=== PATIENT | male | born 1955 | race Caucasian/White ===

== ENCOUNTER 2018-01-22 18:30 | Emergency (ER) | payer OTHER ==
[2018-01-22 18:38] VITALS: BMI 37.7
[2018-01-22 19:04] LABS: BASOPHILS # (AUTO) 0.1 X10^3/uL (0.0-0.1); BASOPHILS % (AUTO) 0.5 % (0.2-1.0); EOSINOPHILS # (AUTO) 0.2 x10^3/uL (0.0-0.2); EOSINOPHILS % (AUTO) 1.4 % (0.9-2.9); HEMATOCRIT 44.2 % (42.0-54.0); HEMOGLOBIN 15.4 g/dL (13.5-18.0); LYMPHOCYTES # (AUTO) 1.2 X10^3/uL (1.3-2.9); LYMPHOCYTES % (AUTO) 9.9 % (21.0-51.0); MEAN CORPUSCULAR HEMOGLOBIN 30.3 pg (27.0-34.0); MEAN CORPUSCULAR HGB CONC 34.8 g/dL (33.0-35.0); MEAN CORPUSCULAR VOLUME 87.1 fL (80.0-100.0); MEAN PLATELET VOLUME 8.2 fL (7.4-11.0); MONOCYTES # (AUTO) 1.3 x10^3/uL (0.3-0.8); MONOCYTES % (AUTO) 11.3 % (0.0-13.0); NEUTROPHILS # (AUTO) 9.1 x10^3/uL (2.2-4.8); NEUTROPHILS % (AUTO) 76.9 % (42.0-75.0); PLATELET COUNT 270 X10^3/uL (150.0-450.0); RED BLOOD COUNT 5.07 X10^6/uL (4.7-6.0); RED CELL DISTRIBUTION WIDTH 14.1 % (11.6-16.5); WHITE BLOOD COUNT 11.9 X10^3/uL (3.6-10.0)
--- NOTE | 2018-01-22 19:04 | DR.GENAD ---
HPI - PCP Primary Care Physician: LB - HPI Comment HPI Comment: symptoms started this morning. No fevers, left groin pain and left lower back pain. No urinary symptoms. Pain free now. - Complaint/Symptoms Chief Complaint:: PT STATES" I'M HURTING IN MY GROIN AREA AND MY LT KIDNEY AREA " - Nurses notes reviewed Nurses Notes Review: Yes - Source History Provided: Patient - Mode of Arrival Mode of Arrival: Ambulatory - Timing Onset of Chief Complaint: 01/22/18 PMH - PMH Past Medical History: Yes Past Medical History: Diabetes, Hypertension, Hyperthyroidism Past Medical History Comment: kidney stone x 1 years ago Past Surgical History: Yes Surgical History: Cholecystectomy, Ortho Surgery, Thyroidectomy, Tonsillectomy, Other Past Surgical History Comment: LT HIP - Family History History of Family Medical Conditions: No - Social History Type of Tobacco Use: Cigarettes Does any household member use tobacco: No Alcohol Use: None Do you use any recreational Drugs:: No Lives With: Family Lives Where: Home - infectious screening In the last 2 months have you had wt loss of >10#?: NO Have you had fever, night sweats or hemotysis?: No Have you traveled outside the country in the last 6 months?: No Isolation: Standard ROS - Review of Systems Constitutional: negative: Fever Eyes: No Symptoms Reported ENTM: No Symptoms Reported Respiratoy: No Symptoms Reported Cardiovascular: No Symptoms Reported Gastrointestinal/Abdominal: No Symptoms Reported Genitourinary: Other (left groin pain) Neurological: No Symptoms Reported Musculoskeletal: Back Pain, Left, Back Integumentary: No Symptoms Reported Hematologic/Lymphatic: No Symptoms Reported Endocrine: Other (thinks sugar may be low) Psychiatric: No Symptoms Reported All Other Systems: Reviewed and Negative PE - Vital Signs Vitals: Temperature 97.6 F Pulse Rate 71 Respiratory Rate 18 Blood Pressure 195/92 O2 Sat by Pulse Oximetry 99 - General Limitations: No Limitations General Appearance: Alert, In No Apparent Distress - Head Head Exam: Normal Inspection - Eyes Eye exam: Normal Appearance - ENT ENT Exam: Normal Exam - Neck Neck Exam: Normal Inspection, Full ROM, Trachea Midline - Respiratory Respiratory Exam: Normal Lung Sounds Bilat Respiratory Exam: Bilateral Clear to Auscultation - Cardiovascular Cardiovascular Exam: Regular Rate, Normal Rhythm. negative: Systolic Murmur, Diastolic Murmur - Abdominal Exam Abdominal Exam: Normal Bowel Sounds, Soft. negative: Distention, Tenderness, Guarding, Rebound - Extremities Extremities Exam: Normal Inspection, Full ROM - Back Back Exam: (L) CVA Tenderness - Neurologic Neurological Exam: Alert, Oriented X3 - Psychiatric Psychiatric Exam: Normal Affect, Normal Mood ROR - Labs Reviewed Result Diagrams: 01/22/18 18:58 01/22/18 18:58 Laboratory: WBC 11.9 X10^3/uL (3.6-10.0) H 01/22/18 18:58 RBC 5.07 X10^6/uL (4.7-6.0) 01/22/18 18:58 Hgb 15.4 g/dL (13.5-18.0) 01/22/18 18:58 Hct 44.2 % (42.0-54.0) 01/22/18 18:58 MCV 87.1 fL (80.0-100.0) 01/22/18 18:58 MCH 30.3 pg (27.0-34.0) 01/22/18 18:58 MCHC 34.8 g/dL (33.0-35.0) 01/22/18 18:58 RDW 14.1 % (11.6-16.5) 01/22/18 18:58 Plt Count 270 X10^3/uL (150.0-450.0) 01/22/18 18:58 MPV 8.2 fL (7.4-11.0) 01/22/18 18:58 Neut % 76.9 % (42.0-75.0) H 01/22/18 18:58 Lymph % 9.9 % (21.0-51.0) L 01/22/18 18:58 [place] % 11.3 % (0.0-13.0) 01/22/18 18:58 Eos % 1.4 % (0.9-2.9) 01/22/18 18:58 Baso % 0.5 % (0.2-1.0) 01/22/18 18:58 Neut # 9.1 x10^3/uL (2.2-4.8) H 01/22/18 18:58 Lymph # 1.2 X10^3/uL (1.3-2.9) L 01/22/18 18:58 [place] # 1.3 x10^3/uL (0.3-0.8) H 01/22/18 18:58 Eos # 0.2 x10^3/uL (0.0-0.2) 01/22/18 18:58 Baso # 0.1 X10^3/uL (0.0-0.1) 01/22/18 18:58 Absolute Nucleated RBC 0.0 /100WBC 01/22/18 18:58 Sodium 134 mmol/L (136-145) L 01/22/18 18:58 Corrected Sodium 136 mmol/L (136-145) 01/22/18 18:58 Potassium 4.0 mmol/L (3.5-5.1) 01/22/18 18:58 Chloride 97 mmol/L (98-107) L 01/22/18 18:58 Carbon Dioxide 25.7 mmol/L (21-32) 01/22/18 18:58 BUN 19 mg/dL (7-18) H 01/22/18 18:58 Creatinine 1.44 mg/dL (0.70-1.30) H 01/22/18 18:58 Est GFR (MDRD) Af Amer > 60 (>60) 01/22/18 18:58 Est GFR (MDRD) Non-Af 52 (>60) L 01/22/18 18:58 Glucose 176 mg/dL (65-99) H 01/22/18 18:58 Calcium 8.5 mg/dL (8.5-10.1) 01/22/18 18:58 Corrected Calcium TNP 01/22/18 18:58 Total Bilirubin 0.40 mg/dL (0.2-1.0) 01/22/18 18:58 AST 23 Units/L (15-37) 01/22/18 18:58 ALT 35 Units/L (12-78) 01/22/18 18:58 Alkaline Phosphatase 50 Units/L (46-116) 01/22/18 18:58 Total Protein 7.4 g/dL (6.4-8.2) 01/22/18 18:58 Albumin 3.9 g/dL (3.4-5.0) 01/22/18 18:58 Globulin 3.5 g/dL (2.5-4.5) 01/22/18 18:58 Albumin/Globulin Ratio 1.1 Ratio (1.1-2.1) 01/22/18 18:58 Specimen Type Clean catch urine 01/22/18 19:53 Urine Color Yellow (YELLOW) 01/22/18 19:53 Urine Appearance Cloudy (CLEAR) 01/22/18 19:53 Urine pH 7.0 (5.0 - 8.0) 01/22/18 19:53 Ur Specific [place] 1.010 (1.000-1.030) 01/22/18 19:53 Urine Protein Negative (NEGATIVE) 01/22/18 19:53 Urine Glucose (UA) 1+ (NEGATIVE) 01/22/18 19:53 Urine Ketones Negative (NEGATIVE) 01/22/18 19:53 Urine Occult Blood 1+ (NEGATIVE) 01/22/18 19:53 Urine Nitrite Negative (NEGATIVE) 01/22/18 19:53 Urine Bilirubin Negative (NEGATIVE) 01/22/18 19:53 Urine Urobilinogen Normal (NORMAL) 01/22/18 19:53 Ur Leukocyte Esterase 2+ (NEGATIVE) 01/22/18 19:53 Urine RBC 0-2 /HPF (NONE SEEN) 01/22/18 19:53 Urine WBC 1-3 /HPF (NONE SEEN) 01/22/18 19:53 Ur Squamous Epith Cells Negative /HPF (NEGATIVE) 01/22/18 19:53 Urine Bacteria Negative /HPF (NEGATIVE) 01/22/18 19:53 Ur Culture Indicated? No/not indicated 01/22/18 19:53 - Diagnosis Discharge Problem: UTI (urinary tract infection) - Discharge Plan Disposition: 01 HOME, SELF-CARE Condition: Stable - Follow ups/Referrals Follow ups/Referrals: LIZZIE ASHER [Primary Care Provider] - 3 days - Instructions Additional Notes - Additional Notes Additional Notes: 820pm pt still pain free, NAD. Discussion with pt re: etiology, agreed to tx as UTI. Pt has amox at home to start tomorrow for dental infection, encouraged him to take this. Will give rocephin 1gIM in ER. Pt agrees with plan. Pt advised re: diabetes control.
[2018-01-22 19:17] LABS: ALANINE AMINOTRANSFERASE 35 Units/L (12-78); ALBUMIN 3.9 g/dL (3.4-5.0); ALKALINE PHOSPHATASE 50 Units/L (46-116); ASPARTATE AMINO TRANSFERASE 23 Units/L (15-37); BLOOD UREA NITROGEN 19 mg/dL (7-18); CALCIUM 8.5 mg/dL (8.5-10.1); CARBON DIOXIDE 25.7 mmol/L (21-32); CHLORIDE 97 mmol/L (98-107); COR NA(FOR HYPERGLY) 136 mmol/L (136-145); CREATININE 1.44 mg/dL (0.70-1.30); SODIUM 134 mmol/L (136-145); TOTAL PROTEIN 7.4 g/dL (6.4-8.2); eGFR BLACK RACES > 60 (>60); eGFR NON BLACK RACES 52 (>60)
[2018-01-22 20:10] LABS: BILIRUBIN,URINE NEGATIVE (NEGATIVE); BLOOD/HEMOGLOBIN,URINE 1+ (NEGATIVE); GLUCOSE, URINE 1+ (NEGATIVE); KETONES,URINE NEGATIVE (NEGATIVE); LEUKOCYTE ESTERASE ,URINE 2+ (NEGATIVE); NITRITES,URINE NEGATIVE (NEGATIVE); PROTEIN,URINE NEGATIVE (NEGATIVE); UROBILINOGEN,URINE NORMAL (NORMAL)
[2018-01-22 20:13] LABS: APPEARANCE,URINE CLOUDY (CLEAR); COLOR,URINE YELLOW (YELLOW)
[2018-01-22 20:18] LABS: RBC,URINE 0-2 /HPF (NONE SEEN)
[2018-01-22 20:19] LABS: BACTERIA,URINE NEGATIVE /HPF (NEGATIVE); SQUAMOUS EPITHELIAL CELL,UR NEGATIVE /HPF (NEGATIVE)
[2018-01-22] MEDS ORDERED: ROCEPHIN VIAL 1 GM IM ONE (20:22)
[2018-01-22] MEDS ORDERED: XYLOCAINE 1 % (PLAIN) ONE (20:27)
[2018-01-22] MEDS ORDERED: ROCEPHIN VIAL 1 GM ONE (20:27)
--- NOTE | 2018-01-22 20:31 | CT ---
HISTORY: Left flank pain, groin pain Study: CT abdomen and pelvis without contrast Comparison: None Technique: Multiple axial images of the abdomen and pelvis were obtained without IV contrast. Dose reduction t echniques including Automated Exposure Control (AEC) and adjustment of mA and kV were utilized. Findings: Please note evaluation is limited without use of IV contrast. The visualized lung bases are clear. The unenhanced spleen, pancreas, and liver are unremarkable. Th e gallbladder is removed. There is a hypodense right adrenal nodule compatible with an adenoma. Multi ple left parapelvic renal cysts are noted. There is also hyperdense exophytic lesion arising from the upper left renal pole with attenuation of 86 Hounsfield units suggestive of a hemorrhagic cyst. Ther e are multiple left renal calculi. There is mild hydronephrosis on the left due to a 3.5 mm stone in the region of the left UVJ. Evaluation is limited due to streak artifact from left hip prosthesis. No free intraperitoneal air. No evidence of intestinal obstruction or inflammation. The appendix is n ormal. No free fluid is identified. The soft tissues and osseous structures are unremarkable. Limited evaluation of vascular structures d ue to lack of contrast. No pathologically enlarged lymph nodes are identified. The urinary bladder is unremarkable. IMPRESSION: 1. Left-sided hydronephrosis due to a 3.5 mm stone in the region of the left UVJ with multiple additi onal nonobstructing left renal calculi also noted. 2. Multiple parapelvic renal cysts. There is a hyperdense exophytic lesion arising from the upper fermin e of the left kidney suggestive of a hemorrhagic cyst. 3. Right adrenal adenoma. Reported By:
[2018-01-22 20:46] VITALS: BP 178/86
--- NOTE | 2018-01-22 20:46 | DR.GENAD ---
HPI - PCP Primary Care Physician: LB - Complaint/Symptoms Chief Complaint:: PT STATES" I'M HURTING IN MY GROIN AREA AND MY LT KIDNEY AREA " - Nurses notes reviewed Nurses Notes Review: Yes - Source History Provided: Patient - Mode of Arrival Mode of Arrival: Ambulatory - Timing Onset of Chief Complaint: 01/22/18 PMH - PMH Past Medical History: Yes Past Medical History: Diabetes, Hypertension, Hyperthyroidism Past Medical History Comment: kidney stone x 1 years ago Past Surgical History: Yes Surgical History: Cholecystectomy, Ortho Surgery, Thyroidectomy, Tonsillectomy, Other Past Surgical History Comment: LT HIP - Family History History of Family Medical Conditions: No - Social History Type of Tobacco Use: Cigarettes Does any household member use tobacco: No Alcohol Use: None Do you use any recreational Drugs:: No Lives With: Family Lives Where: Home - infectious screening In the last 2 months have you had wt loss of >10#?: NO Have you had fever, night sweats or hemotysis?: No Have you traveled outside the country in the last 6 months?: No Isolation: Standard PE - Vital Signs Vitals: Temperature 97.6 F Pulse Rate 71 Respiratory Rate 18 Blood Pressure 195/92 O2 Sat by Pulse Oximetry 99 ROR - Labs Reviewed Result Diagrams: 01/22/18 18:58 01/22/18 18:58 Laboratory: WBC 11.9 X10^3/uL (3.6-10.0) H 01/22/18 18:58 RBC 5.07 X10^6/uL (4.7-6.0) 01/22/18 18:58 Hgb 15.4 g/dL (13.5-18.0) 01/22/18 18:58 Hct 44.2 % (42.0-54.0) 01/22/18 18:58 MCV 87.1 fL (80.0-100.0) 01/22/18 18:58 MCH 30.3 pg (27.0-34.0) 01/22/18 18:58 MCHC 34.8 g/dL (33.0-35.0) 01/22/18 18:58 RDW 14.1 % (11.6-16.5) 01/22/18 18:58 Plt Count 270 X10^3/uL (150.0-450.0) 01/22/18 18:58 MPV 8.2 fL (7.4-11.0) 01/22/18 18:58 Neut % 76.9 % (42.0-75.0) H 01/22/18 18:58 Lymph % 9.9 % (21.0-51.0) L 01/22/18 18:58 [place] % 11.3 % (0.0-13.0) 01/22/18 18:58 Eos % 1.4 % (0.9-2.9) 01/22/18 18:58 Baso % 0.5 % (0.2-1.0) 01/22/18 18:58 Neut # 9.1 x10^3/uL (2.2-4.8) H 01/22/18 18:58 Lymph # 1.2 X10^3/uL (1.3-2.9) L 01/22/18 18:58 [place] # 1.3 x10^3/uL (0.3-0.8) H 01/22/18 18:58 Eos # 0.2 x10^3/uL (0.0-0.2) 01/22/18 18:58 Baso # 0.1 X10^3/uL (0.0-0.1) 01/22/18 18:58 Absolute Nucleated RBC 0.0 /100WBC 01/22/18 18:58 Sodium 134 mmol/L (136-145) L 01/22/18 18:58 Corrected Sodium 136 mmol/L (136-145) 01/22/18 18:58 Potassium 4.0 mmol/L (3.5-5.1) 01/22/18 18:58 Chloride 97 mmol/L (98-107) L 01/22/18 18:58 Carbon Dioxide 25.7 mmol/L (21-32) 01/22/18 18:58 BUN 19 mg/dL (7-18) H 01/22/18 18:58 Creatinine 1.44 mg/dL (0.70-1.30) H 01/22/18 18:58 Est GFR (MDRD) Af Amer > 60 (>60) 01/22/18 18:58 Est GFR (MDRD) Non-Af 52 (>60) L 01/22/18 18:58 Glucose 176 mg/dL (65-99) H 01/22/18 18:58 Calcium 8.5 mg/dL (8.5-10.1) 01/22/18 18:58 Corrected Calcium TNP 01/22/18 18:58 Total Bilirubin 0.40 mg/dL (0.2-1.0) 01/22/18 18:58 AST 23 Units/L (15-37) 01/22/18 18:58 ALT 35 Units/L (12-78) 01/22/18 18:58 Alkaline Phosphatase 50 Units/L (46-116) 01/22/18 18:58 Total Protein 7.4 g/dL (6.4-8.2) 01/22/18 18:58 Albumin 3.9 g/dL (3.4-5.0) 01/22/18 18:58 Globulin 3.5 g/dL (2.5-4.5) 01/22/18 18:58 Albumin/Globulin Ratio 1.1 Ratio (1.1-2.1) 01/22/18 18:58 Specimen Type Clean catch urine 01/22/18 19:53 Urine Color Yellow (YELLOW) 01/22/18 19:53 Urine Appearance Cloudy (CLEAR) 01/22/18 19:53 Urine pH 7.0 (5.0 - 8.0) 01/22/18 19:53 Ur Specific [place] 1.010 (1.000-1.030) 01/22/18 19:53 Urine Protein Negative (NEGATIVE) 01/22/18 19:53 Urine Glucose (UA) 1+ (NEGATIVE) 01/22/18 19:53 Urine Ketones Negative (NEGATIVE) 01/22/18 19:53 Urine Occult Blood 1+ (NEGATIVE) 01/22/18 19:53 Urine Nitrite Negative (NEGATIVE) 01/22/18 19:53 Urine Bilirubin Negative (NEGATIVE) 01/22/18 19:53 Urine Urobilinogen Normal (NORMAL) 01/22/18 19:53 Ur Leukocyte Esterase 2+ (NEGATIVE) 01/22/18 19:53 Urine RBC 0-2 /HPF (NONE SEEN) 01/22/18 19:53 Urine WBC 1-3 /HPF (NONE SEEN) 01/22/18 19:53 Ur Squamous Epith Cells Negative /HPF (NEGATIVE) 01/22/18 19:53 Urine Bacteria Negative /HPF (NEGATIVE) 01/22/18 19:53 Ur Culture Indicated? No/not indicated 01/22/18 19:53 - Diagnosis Discharge Problem: UTI (urinary tract infection) - Discharge Plan Disposition: 01 HOME, SELF-CARE Condition: Stable - Follow ups/Referrals Follow ups/Referrals: LIZZIE ASHER [Primary Care Provider] - 3 days - Instructions Instructions: Kidney Stones, [id number], Urinary Tract Infection, Adult, Easy -to-Read Additional Notes - Additional Notes Additional Notes: CT report showed 3.5mm stone at left UVJ. This was inadvertently left off prior note. Reported to pt but he is pain free, no pain meds needed in ER. Pt to take abx as dedtailed in prior note for UTI, return to ER PRN.
== END 2018-01-22 20:46 | disposition home or self-care (01) ==
LOC: ER 18:41
DX: N39.0 Urinary tract infection, site not specified (principal); N13.30 Unspecified hydronephrosis; N28.1 Cyst of kidney, acquired; D35.00 Benign neoplasm of unspecified adrenal gland; R10.84 Generalized abdominal pain
CPT/HCPCS: 36415; 74176; 80053; 81001; 85025; 96365; 96372; 99282; 99283; A4222; J0696; J2001

== ENCOUNTER → 2018-02-20 | Outpatient (CLI) | payer OTHER ==
[2018-01-22 20:46] VITALS: BP 178/86
[~2018-02-20] MED LIST: NS 100 ML IV 100 ML IV ONE
--- NOTE | 2018-02-20 10:45 | CT ---
CT abdomen and pelvis with contrast Indication: Renal cysts Comparison: 01/22/2018 Technique: CT images of the abdomen and pelvis were obtained with IV contrast. Automatic exposure con trol was utilized. Findings: There is severe right hip DJD. Previous left hip arthroplasty is noted. No aggressive osseo us lesions are identified. Aside from small calcified granulomas within the lower lobes, the lung bas es are clear. Previous cholecystectomy. There is a round 1.4 cm hypodense lesion within the lateral hepatic segment on axial image 23. Remainder of the liver, spleen, stomach, duodenum, pancreas, and left adrenal gla nd are unremarkable. There is a stable right adrenal nodule previously demonstrated to represent an a denoma. There are again multiple bilateral renal cysts, greater on the left, most of which are simple, but th ere is a stable small hyperdense cyst arising from the left upper pole. Left-sided hydronephrosis has resolved in the interval. There are multiple nonobstructing left renal stones, measuring up to 8 mm. No ureteral stones are identified, although the distal left ureter is obscured by metallic streak ar tifact from the hip arthroplasty. No marked thickening or dilatation of the lower GI tract. Normal appendix. Mild prostate enlargement. The urinary bladder and rectum are unremarkable. There is aortoiliac atherosclerosis, without aneury sm. No free fluid or adenopathy. Impression: 1. Multiple mostly simple bilateral renal cysts, with stable probable hyperdense cyst of the left upp er pole. Nonobstructing left-sided nephrolithiasis. 2. Indeterminate hypodense 1.4 cm left hepatic lobe lesion. This is of doubtful clinical significance , but can be further evaluated with hepatic protocol MRI, if indicated. 3. Mild prostate enlargement, severe right hip DJD, and other findings as above. Reported By:
== END | disposition home or self-care (01) | DRG 392 ==
LOC: RAD 08:33
PROVIDERS: ATTEND Nurse Practitioner Family
DX: R10.84 Generalized abdominal pain (principal); D35.01 Benign neoplasm of right adrenal gland; N20.0 Calculus of kidney; Z85.850 Personal history of malignant neoplasm of thyroid; N28.1 Cyst of kidney, acquired; N40.0 Benign prostatic hyperplasia without lower urinary tract symptoms; M16.11 Unilateral primary osteoarthritis, right hip
CPT/HCPCS: 74177; A4222

== ENCOUNTER 2025-02-23 12:23 | Inpatient (IN) ==
[2025-02-23] MEDS: NEURONTIN CAP 400 MG PO SCH (16:39)
[2025-02-23] MEDS: HumaLOG SC SCH (17:28)
[2025-02-23] MEDS ORDERED: SNACK - Diabetic Appropriate PO SCH (20:00)
[2025-02-23] MEDS: SNACK - Diabetic Appropriate PO SCH ×2 (20:15)
[2025-02-23] MEDS ORDERED: PATIENT'S HOME MEDICATION PO SCH (21:00)
[2025-02-23] MEDS: XOPENEX 1.25 MG/3 ML NEBULE NEB SCH (21:16)
[2025-02-23] MEDS: ELIQUIS PO SCH (21:25)
[2025-02-23] MEDS: COREG TAB 6.25 MG PO SCH (21:25)
[2025-02-23] MEDS: LIPITOR TAB 40 MG PO SCH (21:26)
[2025-02-23] MEDS: REQUIP PO SCH (21:26)
[2025-02-23] MEDS: ZETIA TAB 10 MG PO SCH (21:26)
[2025-02-23] MEDS: PATIENT'S HOME MEDICATION PO SCH ×2 (21:32→21:33)
[2025-02-24] MEDS: SYNTHROID 112 mcg TAB PO SCH (07:46)
--- NOTE | 2025-02-24 08:11 | DR.UPDATE ---
H&P UPDATE Review Yes Any changes to H&P?: No Patient was examined?: Yes
[2025-02-24 08:31] LABS: ABG BASE EXCESS 4.6 mmol/L (-2.0-2.0)
[2025-02-24 08:32] LABS: ABG HCO3 30.4 mmol/L (22-26)
[2025-02-24 08:33] LABS: ABG ALLEN TEST POS
[2025-02-24] MEDS: LANTUS SC SCH (09:16)
[2025-02-24] MEDS: TAB-A-VITE PO SCH (09:18)
[2025-02-24] MEDS: ASPIRIN 81 MG CHEWTAB PO SCH (09:18)
[2025-02-24] MEDS: TRICOR TAB 48 MG PO SCH (09:18)
[2025-02-24] MEDS: NORVASC TAB 10 MG PO SCH (09:18)
[2025-02-24] MEDS: ZESTRIL TAB 5 MG PO SCH (09:18)
[2025-02-24] MEDS: FLOMAX PO SCH (09:18)
[2025-02-24] MEDS: ALDACTONE TAB 25 MG PO SCH (09:18)
[2025-02-24] MEDS: FARXIGA PO SCH (09:19)
--- NOTE | 2025-02-24 11:50 | PT/OTEVAL ---
PT/OT OBJECTIVES - HISTORY Prescription: PT Consult Diagnosis: s/p CABG Precautions: Fall Risk, Sternal Precautions PMH: HTN, HLD, Hypothyroidism, DM2, RLS, BPH, Depression, Psoriatic Arthritis, Brain Mass s/p Resection, Tonsillectomy, Cataract Sx with Implants Prior Level of Function: Independent Other: Pt resides at home with in single story home with 2 steps to enter (no HR) but reports that they will be getting one installed. PLOF: Independent within home and community without a device. History of Present Illness: Mr. Smith is a 69 year old male who starting on 01/30/2025 had complaints of chest pain and underwent a stress test- pt's daughter was called and told to bring patient to the ED for further assessment. Pt was subsequently transferred to [facility] where he underwent CABG x 2 (with left internal mammary to left anterior descending artery and saphenous vein graft to PDA) on 02/02/2025. On 02/10/2025 pt with RUE swelling and was found to have occulsive thrombosis of R subclavian vein and noninclusive thrombus in R axillary vein and per underwent treatment via blood thinners. Pt then had several epsidoes of atrial flutter requiring cardioversion. Once pt was medically stabilized he was transferred to [facility] late in the afternoon of 02/23/2025 for swing bed rehab program. - COGNITION Mental Status: Alert, Oriented, Name, Date, Place, Purpose Communication Status: Verbal Ability to Follow Directions: 2 Step - PAIN No signs of pain Pain Scale: No Pain Comments: No reports of pain at time of evaluation. - BED MOBILITY Rolling: Moderate - TRANSFERS Supine to Sit: Moderate Sit to Stand: Moderate Sit or Stand Pivot: Moderate Safety Comment: Sternal Precautions - BALANCE Static Sitting: Good Standing: Fair Balance Comment: Fair- Dynamic Sitting: Good Standing: Poor - HAND DOMINANCE Extremity Function: Hand Dominance: Right - ROM Bilateral LE ROM: WFL Muscle Tone: WFL - STRENGTH Bilateral LE Strength Number: 3 Other comment: 3 to B Hips; 3+ to B Knees and Ankles - GAIT Pt. ambulates how many feet?: 40 Amount of Assistance Required: Minimal Type of Assistive Device: Rolling Walker Comments: Easily fatigues, cues for posture and walker approximation. On 2LO2 via NC - TREATMENT Date: 02/24/25 Time: 07:30 Treatment Type: Evaluation Treatment Provided: Gait, Therapeutic Activities - TOTAL TREATMENT TIME Total Time: 60 - POST ASSESSMENT Post Assessment Comment: Pt was found supine in bed in room and agreeable to participation in PT services. Pt and able to provide history and PLOF information. Pt reports no pain at time of evaluation. Pt educated on sternal precautions and how to maintain during mobility tasks. Pt required mod assist for transition from supine to sitting EOB. Once at EOB, pt able to maintain sitting balance while performing reaching tasks within close proximity. Pt then required mod assist for transition from sit to stand holding onto heart pillow and focus on using BLEs for complete. Pt was able to ambulate within room to start for 30ft and min assist. Pt took prolonged seated therapeutic rest break. Pt then able to ambulate for 3 additional bouts of 40ft each with close wheelchair follow and cues for upright posture, close walker approximation and upright posture throughout. Pt was on 2LO2 via NC throughout. Pt required prolonged seated therapeutic rest breaks between bouts. Pt then agreeable to sit in recliner chair in room. Pt and educated on PT POC and goals to address deficits and facilitate safe discharge planning home. Pt's RUE was n oted to be weeping throughout and nurse was notified. Pt would benefit from continued participation in PT Services to address deficits and facilitate highest level of function and safe discharge planning. - EXIT DISPOSITION Exit Position: CHAIR Bed Alarm On: YES Comments: present in room. PT/OT ASSESSMENT - PT Problem List: Decreased Bed Mobility, Decreased Transfers, Decreased Gait, Decreased Balance, Decreased Safety, Decreased LE Strength - OT Problem List: Other - PT GOALS Short Term Goals Days: 10 Mobility: Pt will perform bed mobility tasks with min assist Transfers: Pt will perform functional transfers with touch assist with sternal precaut Gait: Pt will ambulate 150ft with FWW and supervision Balance: Pt will increase static standing balance to good Usp Goals Days: 20 Mobility: Pt will perform bed mobility tasks with mod I Transfers: Pt will perform functional transfers with mod I Gait: Pt will ambulate 300ft with LRAD and mod I Balance: Pt will increase dynamic standing balance to good ROM/Strength: Pt will increase BLE strength to 5/5 Others: Pt will ascend/descend 2 stairs with supervision - PATIENT GOALS Patient/Family Goals: "I want to get better and get home" Goals Discussed with Patient/Family: Yes Rehabilitation Potential: Good to meet stated goals Justification for Potential: Facilitate highest level of function and safe discharge planning Weakness and Barriers: None - PLAN Suggested Treatment Plan: Bed Mobility Training, Therapeutic Activity, Gait Training, Neuro Re-education, Therapeutic Ex with HEP, Patient Education, Family Education, Other Other comment: Manual Therapy - FREQUENCY AND DURATION PT: 5-6x per week x 20 days Expected Continuation of Care at Discharge: Outpatient Therapy, Home Health
--- NOTE | 2025-02-24 12:33 | RAD ---
EXAM:CHEST, 1 VIEWHISTORY:R/O PNEUMONIA ;COMPARISON:No relevant prior studies were available for comparison at the time of interpretation.TECHNIQUE:CHEST, 1 VIEWFINDINGS:Chest:Lines and tubes: Left-sided pacemaker generator with lead or leads in satisfactory position.Mediastinum: Median sternotomy wires are present. The cardiac shadow is enlarged.Pulmonary vessels: There is pulmonary vascular congestion.Lung rodarte: Patchy opacities are seenPleura: Bilateral pleural effusionsBones and soft tissues: No acute osseous or soft tissue abnormality.IMPRESSION:1. Findings suggest heart failure. Pneumonia can not be ruled outTHIS IS AN ELECTRONICALLY VERIFIED FINAL REPORT02/24/2025 12:22 PM - Electronically signed by Davi Rose MD
--- NOTE | 2025-02-24 13:59 | PT/OTEVAL ---
PT/OT OBJECTIVES - HISTORY Prescription: OT Consult Diagnosis: s/p CABG Precautions: Sternal precaution, fall risk PMH: HTN, HLD, Hypothyroidism, DM2, RLS, BPH, Depression, Psoriatic Arthritis, Brain Mass s/p Resection, Tonsillectomy, Cataract Sx with Implants Prior Level of Function: Independent Other: Pt lives with his in a 1 story home with 2 steps to enter (no HR) but reports that they will be getting one installed. PLOF: Independent with ADLs and ADL mobility. History of Present Illness: Mr. Smith is a 69 year old male who starting on 01/30/2025 had complaints of chest pain and underwent a stress test- pt's daughter was called and told to bring patient to the ED for further assessment. Pt was subsequently transferred to [facility] where he underwent CABG x 2 (with left internal mammary to left anterior descending artery and saphenous vein graft to PDA) on 02/02/2025. On 02/10/2025 pt with RUE swelling and was found to have occulsive thrombosis of R subclavian vein and noninclusive thrombus in R axillary vein and per underwent treatment via blood thinners. Pt then had several epsidoes of atrial flutter requiring cardioversion. Once pt was medically stabilized he was transferred to [facility] late in the afternoon of 02/23/2025 for swing bed rehab program. - COGNITION Mental Status: Alert Communication Status: Verbal Ability to Follow Directions: 2 Step Affect: Calm - PAIN No signs of pain Pain Scale: No Pain Comments: No reports of pain at time of evaluation. - BED MOBILITY Rolling: Moderate - TRANSFERS Supine to Sit: Moderate Sit to Stand: Moderate Sit or Stand Pivot: Moderate Safety Comment: Sternal precautions - ADL'S Grooming: Moderate Upper Body ADL: Moderate Lower Body ADL: Maximum Toileting: Maximum Toileting Comment: Currently has a purewick. Bathing: Maximum Hygeine: Moderate - BALANCE Static Sitting: Good Standing: Fair Balance Comment: Fair- Dynamic Sitting: Good Standing: Poor - HAND DOMINANCE Extremity Function: Hand Dominance: Right - ROM Bilateral UE ROM: WFL - STRENGTH Bilateral LE Strength Number: 3 Other comment: 3 to B Hips; 3+ to B Knees and Ankles Bilateral UE Strength Number: 3 - GAIT Pt. ambulates how many feet?: 40 Amount of assistance required: Minimal Type of Assistive Device: Rolling Walker - TREATMENT Date: 02/24/25 Time: 08:00 Treatment Type: Evaluation Treatment Provided: Therapeutic Activities, Other - TOTAL TREATMENT TIME Total Time: 90 - POST ASSESSMENT Post Assessment Comment: Pt was seen for skilled OT to assess CLOF. Pt was able to provide PLOF and hx, present to confirm. Pt was will to participate with skilled OT. Pt supine to sit with mod A and mod VC. Pt given mod VC for sternal precautions and using his heart pillow. Pt sat EOB and completed bathing and dressing. Max A for LB and mod A for UB. Pt fatigues easily and needs extended RBs for fatigue. Pt on o2. Pt functionally AMB with RW and touch A. Pt agreeable to sit up in recliner. All needs met and call light within reach. Pt demonstrate deficits with ADLs and ADL functional mobility. Pt would benefit from skilled OT services to address ADL deficits to facilitate highest level of ADL function needed for safe d/c planning. - EXIT DISPOSITION Exit Position: CHAIR Call light in reach: Yes PT/OT ASSESSMENT - OT Problem List: Decreased Mobility ADL's, Decreased Safety Aware, Decreased Dressing, Decreased Bathing, Decreased Grooming, Decreased UE Strength - PT GOALS Short Term Goals Days: 10 Mobility: Pt will perform bed mobility tasks with min assist Transfers: Pt will perform functional transfers with touch assist with sternal precaut Gait: Pt will ambulate 150ft with FWW and supervision Balance: Pt will increase static standing balance to good Alf Goals Days: 20 Mobility: Pt will perform bed mobility tasks with mod I Transfers: Pt will perform functional transfers with mod I Gait: Pt will ambulate 300ft with LRAD and mod I Balance: Pt will increase dynamic standing balance to good ROM/Strength: Pt will increase BLE strength to 5/5 Others: Pt will ascend/descend 2 stairs with supervision - OT GOALS Alf Goals Days: 20 Mobility for ADL's: Pt to improve functional ADL transfers with LRAD and set up A Safety Awareness: Pt to improve safety awareness to G Dressing: Pt to improve LB dressing to supv A with AE PRN Bathing: Pt to improve overall bathing to set up A and AE PRN Grooming: Pt to improve grooming to set up A Upper Ext. Strength/Use: Pt to improve MMT in BUE by 1 grade Short Term Goals Days: 10 Mobility for ADL's: Pt to improve functional ADL transfers with LRAD and supv A Safety Awareness: Pt to be able to state all sternal precautions Dressing: Pt to improve UB dressing to supv A with AE PRN Bathing: Pt to improve overall bathing to supv A and AE PRN Grooming: Pt to improve grooming to supv A Other: Pt to improve FAT to good. - PATIENT GOALS Patient/Family Goals: To go home and feel better. Goals Discussed with Patient/Family: Yes Rehabilitation Potential: Good to meet stated goals. Justification for Potential: To facilitate highest level of ADL function needed for safe d/c planning. Weakness and Barriers: None - PLAN Suggested Treatment Plan: Therapeutic Activity, Self Care Training, Neuro Re- education, Therapeutic Ex with HEP, Patient Education, Family Education - FREQUENCY AND DURATION OT: 5x a week x 20 days Expected Continuation of Care at Discharge: Outpatient Therapy, Home Health
[2025-02-24] MEDS: CORDARONE TAB 200 MG PO SCH (15:42)
[2025-02-24 17:19] VITALS: BMI 38.6
[2025-02-24] MEDS: K-DUR TAB 20 MEQ PO ONE (19:12)
[2025-02-24] MEDS: LASIX IVP ONE (19:13)
[2025-02-24] MEDS: ELAVIL PO SCH (20:46)
[2025-02-24] MEDS ORDERED: NAPROSYN PO PRN (21:00)
[2025-02-24] MEDS ORDERED: NAPROSYN PO SCH (21:00)
[2025-02-24] MEDS ORDERED: LANTUS SC SCH (22:00)
[2025-02-25 06:51] LABS: CALCIUM 7.7 mg/dL (8.5-10.1); CARBON DIOXIDE 30.5 mmol/L (21-32); COR CA(FOR HYPOALB) 9.3 mg/dL (8.5-10.1); CREATININE 1.59 mg/dL (0.70-1.30); POTASSIUM 4.5 mmol/L (3.5-5.1); TOTAL PROTEIN 5.8 g/dL (6.4-8.2)
[2025-02-25 07:00] LABS: BASOPHILS % (AUTO) 0.4 % (0.2-1.0); EOSINOPHILS # (AUTO) 0.6 x10^3/uL (0.0-0.2); EOSINOPHILS % (AUTO) 6.1 % (0.9-2.9); HEMATOCRIT 34.6 % (42.0-54.0); HEMOGLOBIN 11.2 g/dL (13.5-18.0); LYMPHOCYTES # (AUTO) 1.6 X10^3/uL (1.3-2.9); LYMPHOCYTES % (AUTO) 16.3 % (21.0-51.0); MEAN CORPUSCULAR HEMOGLOBIN 29.3 pg (27.0-34.0); MEAN CORPUSCULAR HGB CONC 32.4 g/dL (33.0-35.0); MEAN CORPUSCULAR VOLUME 90.5 fL (80.0-100.0); MEAN PLATELET VOLUME 8.9 fL (7.4-11.0); MONOCYTES % (AUTO) 10.6 % (0.0-13.0); NEUTROPHILS # (AUTO) 6.5 x10^3/uL (2.2-4.8); NEUTROPHILS % (AUTO) 66.6 % (42.0-75.0); PLATELET COUNT 335 X10^3/uL (150.0-450.0); RED BLOOD COUNT 3.82 X10^6/uL (4.7-6.0); RED CELL DISTRIBUTION WIDTH 15.2 % (11.6-16.5); WHITE BLOOD COUNT 9.7 X10^3/uL (3.6-10.0)
[2025-02-25] MEDS ORDERED: MIRAPEX TAB 0.25 MG PO SCH (09:00)
[2025-02-25] MEDS: TYLENOL 325 MG TAB PO ONE (15:51)
--- NOTE | 2025-02-26 12:06 | CT ---
EXAM: CT HEAD WITHOUT CONTRAST HISTORY: CONFUSION / AMS; COMPARISON: None. TECHNIQUE: Axial CT images were obtained through the brain without contrast. All CT scans at this facility use dose modulation, iterative reconstruction, and/or weight based dosi ng when appropriate to reduce radiation dose to as low as reasonably achievable. FINDINGS: BRAIN: There is moderate diffuse atrophy with proportionate enlargement of the cerebral sulci and tian tricular system. Decreased attenuation in the periventricular white matter is compatible with but n ot specific for chronic small vessel ischemic changes. No evidence of acute infarct intra or extraa xial hemorrhage mass effect or hydrocephalus. CALVARIUM: Normal ADDITIONAL FINDINGS: The visualized paranasal sinuses and mastoid air cells are clear. Orbits are yg ssly unremarkable. Nonspecific soft tissue mass in the scalp measuring 2.1 cm image 32. IMPRESSION: No evidence of acute intracranial process. THIS IS AN ELECTRONICALLY VERIFIED FINAL REPORT 02/26/2025 11:57 AM - Electronically signed by Rustam Vergara MD
--- NOTE | 2025-02-26 13:11 | RAD ---
EXAM: CHEST, 1 VIEW HISTORY: Poss pneumonia, CHF; COMPARISON: 02/24/2025 TECHNIQUE: AP portable FINDINGS: Stable prominent cardiac silhouette, accentuated by AP technique. Median sternotomy wires/plates and postsurgical changes from CABG. Left-sided pacer leads in place. Stable mild hazy perihilar opacit ies and suspected layering pleural effusions. No visible pneumothorax. IMPRESSION: Stable hazy perihilar opacities and layering pleural effusion, suspicious for pulmonary edema. THIS IS AN ELECTRONICALLY VERIFIED FINAL REPORT 02/26/2025 1:07 PM - Electronically signed by Rustam Cui MD
[2025-02-27 06:21] LABS: BASOPHILS # (AUTO) 0.1 X10^3/uL (0.0-0.1); BASOPHILS % (AUTO) 0.7 % (0.2-1.0); EOSINOPHILS # (AUTO) 0.6 x10^3/uL (0.0-0.2); EOSINOPHILS % (AUTO) 5.5 % (0.9-2.9); HEMOGLOBIN 11.2 g/dL (13.5-18.0); LYMPHOCYTES # (AUTO) 1.6 X10^3/uL (1.3-2.9); LYMPHOCYTES % (AUTO) 14.6 % (21.0-51.0); MEAN CORPUSCULAR HEMOGLOBIN 29.8 pg (27.0-34.0); MEAN CORPUSCULAR VOLUME 90.2 fL (80.0-100.0); MEAN PLATELET VOLUME 8.5 fL (7.4-11.0); MONOCYTES # (AUTO) 1.2 x10^3/uL (0.3-0.8); MONOCYTES % (AUTO) 10.9 % (0.0-13.0); NEUTROPHILS # (AUTO) 7.3 x10^3/uL (2.2-4.8); NEUTROPHILS % (AUTO) 68.3 % (42.0-75.0); PLATELET COUNT 339 X10^3/uL (150.0-450.0); RED BLOOD COUNT 3.77 X10^6/uL (4.7-6.0); RED CELL DISTRIBUTION WIDTH 15.4 % (11.6-16.5); WHITE BLOOD COUNT 10.7 X10^3/uL (3.6-10.0)
[2025-02-27 06:36] LABS: ALANINE AMINOTRANSFERASE 52 Units/L (12-78); ALKALINE PHOSPHATASE 88 Units/L (46-116); ASPARTATE AMINO TRANSFERASE 25 Units/L (15-37); BLOOD UREA NITROGEN 18 mg/dL (7-18); CALCIUM 7.7 mg/dL (8.5-10.1); CARBON DIOXIDE 31.2 mmol/L (21-32); CHLORIDE 104 mmol/L (98-107); COR CA(FOR HYPOALB) 9.3 mg/dL (8.5-10.1); COR NA(FOR HYPERGLY) 142 mmol/L (136-145); CREATININE 1.23 mg/dL (0.70-1.30); GLUCOSE 131 mg/dL (65-99); POTASSIUM 4.4 mmol/L (3.5-5.1); SODIUM 141 mmol/L (136-145); TOTAL PROTEIN 5.6 g/dL (6.4-8.2); eGFR NON BLACK RACES > 60 (>60)
[2025-02-28 20:28] LABS: BILIRUBIN,URINE NEGATIVE (NEGATIVE); BLOOD/HEMOGLOBIN,URINE 3+ (NEGATIVE); GLUCOSE, URINE 4+ (NEGATIVE); KETONES,URINE NEGATIVE (NEGATIVE); LEUKOCYTE ESTERASE ,URINE 2+ (NEGATIVE); NITRITES,URINE NEGATIVE (NEGATIVE); PROTEIN,URINE 2+ (NEGATIVE); UROBILINOGEN,URINE NORMAL (NORMAL)
[2025-02-28 20:36] LABS: APPEARANCE,URINE HAZY (CLEAR); BACTERIA,URINE 2+ /HPF (NEGATIVE); COLOR,URINE YELLOW (YELLOW); SQUAMOUS EPITHELIAL CELL,UR RARE /HPF (NEGATIVE)
[2025-03-01] MEDS: VIBRAMYCIN PO SCH (11:15)
--- NOTE | 2025-03-01 13:05 | RAD ---
EXAM:CHESTHISTORY:SOB;COMPARISON: [email or web address] submitted for interpretation.FINDINGS:Left-sided cardiac pacer is stable. The cardiomediastinal silhouette is again seen to be enlarged post CABG. Lungs show moderate left pleural effusion.IMPRESSION:Stable cardiomegaly. Moderate left pleural effusion is unchanged.THIS IS AN ELECTRONICALLY VERIFIED FINAL REPORT03/01/2025 1:01 PM - Electronically signed by Rustam Vergara MD
[2025-03-01] MEDS: ZOFRAN INJ 4 MG VIAL IVP PRN (13:21)
[2025-03-01] MEDS ORDERED: LASIX IVP ONE (17:15)
[2025-03-01] MEDS: LASIX IVP ONE ×2 (17:16→18:06)
[2025-03-02 06:01] LABS: BASOPHILS # (AUTO) 0.1 X10^3/uL (0.0-0.1); BASOPHILS % (AUTO) 0.8 % (0.2-1.0); EOSINOPHILS # (AUTO) 0.3 x10^3/uL (0.0-0.2); EOSINOPHILS % (AUTO) 4.8 % (0.9-2.9); HEMATOCRIT 34.9 % (42.0-54.0); HEMOGLOBIN 11.5 g/dL (13.5-18.0); LYMPHOCYTES # (AUTO) 1.3 X10^3/uL (1.3-2.9); LYMPHOCYTES % (AUTO) 18.9 % (21.0-51.0); MEAN CORPUSCULAR HEMOGLOBIN 29.6 pg (27.0-34.0); MEAN CORPUSCULAR HGB CONC 33.1 g/dL (33.0-35.0); MEAN CORPUSCULAR VOLUME 89.4 fL (80.0-100.0); MEAN PLATELET VOLUME 8.2 fL (7.4-11.0); MONOCYTES # (AUTO) 0.8 x10^3/uL (0.3-0.8); MONOCYTES % (AUTO) 11.2 % (0.0-13.0); NEUTROPHILS # (AUTO) 4.6 x10^3/uL (2.2-4.8); NEUTROPHILS % (AUTO) 64.3 % (42.0-75.0); PLATELET COUNT 308 X10^3/uL (150.0-450.0); RED CELL DISTRIBUTION WIDTH 15.3 % (11.6-16.5); WHITE BLOOD COUNT 7.1 X10^3/uL (3.6-10.0)
[2025-03-02 06:14] LABS: ALBUMIN 2.3 g/dL (3.4-5.0); CARBON DIOXIDE 31.4 mmol/L (21-32); COR CA(FOR HYPOALB) 9.4 mg/dL (8.5-10.1); CREATININE 1.48 mg/dL (0.70-1.30); POTASSIUM 3.9 mmol/L (3.5-5.1)
[2025-03-02] MEDS ORDERED: DEMADEX PO SCH (09:00)
--- NOTE | 2025-03-02 10:05 | RAD ---
EXAM: CHEST, 1 VIEW HISTORY: chf; COMPARISON: No relevant prior studies were available for comparison at the time of interpretation. TECHNIQUE: CHEST, 1 VIEW FINDINGS: Chest: Lines and tubes: Left-sided pacemaker generator with lead or leads in satisfactory position. Mediastinum: Median sternotomy wires are present. The cardiac shadow is enlarged. Pulmonary vessels: There is pulmonary vascular congestion. Lung rodarte: Patchy opacities are seen Pleura: There is blunting of the left costophrenic angle. No pneumothorax. Bones and soft tissues: No acute osseous or soft tissue abnormality. IMPRESSION: 1. Findings suggest heart failure THIS IS AN ELECTRONICALLY VERIFIED FINAL REPORT 03/02/2025 10:02 AM - Electronically signed by Davi Rose MD
[2025-03-02] MEDS ORDERED: ROCEPHIN VIAL 1 GRAM 1 G in NS 100 ML IV 100 ML IV SCH (10:15)
[2025-03-02] MEDS: OMNICEF CAP 300 MG PO SCH (12:33)
[2025-03-03] MEDS: TYLENOL 325 MG TAB PO PRN (07:38)
[2025-03-03] MEDS ORDERED: ZESTRIL TAB 10 MG PO SCH (09:00)
[2025-03-03] MEDS: ZESTRIL TAB 5 MG PO NR (10:15)
[2025-03-03] MEDS: K-DUR TAB 20 MEQ PO SCH (10:15)
[2025-03-03] MEDS: LASIX PO SCH (10:15)
[2025-03-03] MEDS: CIPRO TAB 500 MG PO SCH (12:33)
--- NOTE | 2025-03-03 15:05 | EKG ---
Test Reason : Chest Pain Blood Pressure : */* mmHG Vent. Rate : 66 BPM Atrial Rate : 66 BPM P-R Int : 272 ms QRS Dur : 148 ms QT Int : 512 ms P-R-T Axes : * -12 161 degrees QTc Int : 536 ms AV dual-paced rhythm with prolonged AV conduction Abnormal ECG When compared with ECG of 10-JUL-2024 11:55, premature ventricular complexes are no longer present Vent. rate has decreased BY 8 BPM Confirmed by Osman Flanagan MD ([id number]) on 03/04/2025 7:21:18 AM Referred By: Confirmed By: Osman Flanagan MD
[2025-03-03] MEDS: MAALOX or MYLANTA PO PRN (15:13)
[2025-03-04 06:10] LABS: BASOPHILS # (AUTO) 0.1 X10^3/uL (0.0-0.1); BASOPHILS % (AUTO) 0.6 % (0.2-1.0); EOSINOPHILS # (AUTO) 0.4 x10^3/uL (0.0-0.2); HEMATOCRIT 37.2 % (42.0-54.0); HEMOGLOBIN 12.2 g/dL (13.5-18.0); LYMPHOCYTES # (AUTO) 1.3 X10^3/uL (1.3-2.9); LYMPHOCYTES % (AUTO) 14.9 % (21.0-51.0); MEAN CORPUSCULAR HEMOGLOBIN 29.1 pg (27.0-34.0); MEAN CORPUSCULAR HGB CONC 32.8 g/dL (33.0-35.0); MEAN CORPUSCULAR VOLUME 88.6 fL (80.0-100.0); MEAN PLATELET VOLUME 8.3 fL (7.4-11.0); MONOCYTES # (AUTO) 0.9 x10^3/uL (0.3-0.8); MONOCYTES % (AUTO) 9.6 % (0.0-13.0); NEUTROPHILS # (AUTO) 6.3 x10^3/uL (2.2-4.8); NEUTROPHILS % (AUTO) 70.9 % (42.0-75.0); PLATELET COUNT 349 X10^3/uL (150.0-450.0); RED CELL DISTRIBUTION WIDTH 15.4 % (11.6-16.5); WHITE BLOOD COUNT 8.9 X10^3/uL (3.6-10.0)
--- NOTE | 2025-03-04 06:11 | RAD ---
EXAM: CHEST, 1 VIEW HISTORY: CHF; TRIPLE BYPASS, DM COMPARISON: 03/02/2025 FINDINGS: The cardiomediastinal silhouette is stable. Left-sided pacer and pacer wires unchanged. Similar pos t sternotomy changes. Left-sided pleural-parenchymal opacities. No pneumothorax. The right lung is relatively clear. No acute osseous abnormality. IMPRESSION: Left-sided opacities and effusion. Continued follow-up recommended. THIS IS AN ELECTRONICALLY VERIFIED FINAL REPORT 03/04/2025 6:08 AM - Electronically signed by Alonso Garcia MD
[2025-03-04 06:21] LABS: ALBUMIN 2.7 g/dL (3.4-5.0); CALCIUM 8.4 mg/dL (8.5-10.1); CARBON DIOXIDE 29.2 mmol/L (21-32); COR CA(FOR HYPOALB) 9.4 mg/dL (8.5-10.1); CREATININE 1.6 mg/dL (0.70-1.30); POTASSIUM 4.1 mmol/L (3.5-5.1); TOTAL PROTEIN 6.7 g/dL (6.4-8.2)
[2025-03-04] MEDS: ZESTRIL TAB 10 MG PO SCH (09:14)
[2025-03-04] MEDS: CORDARONE TAB 200 MG PO SCH (09:14)
[2025-03-04 10:38] VITALS: BP 126/76; PULSE 63; RESP 18; TEMP 98.2; O2SAT 93
== END 2025-03-04 11:10 | disposition home health service (06) | DRG 315 ==
LOC: MED/SURG 15:05
PROVIDERS: ADMIT Internal Medicine; ATTEND Internal Medicine
DX: B96.89 Other specified bacterial agents as the cause of diseases classified elsewhere; E03.8 Other specified hypothyroidism; I23.8 Other current complications following acute myocardial infarction; R94.31 Abnormal electrocardiogram [ECG] [EKG]; Z98.890 Other specified postprocedural states; Z95.0 Presence of cardiac pacemaker; I11.0 Hypertensive heart disease with heart failure; E11.65 Type 2 diabetes mellitus with hyperglycemia; Z51.89 Encounter for other specified aftercare; Z95.1 Presence of aortocoronary bypass graft; Z16.11 Resistance to penicillins; B96.5 Pseudomonas (aeruginosa) (mallei) (pseudomallei) as the cause of diseases classified elsewhere; L76.82 Other postprocedural complications of skin and subcutaneous tissue; Z16.19 Resistance to other specified beta lactam antibiotics; N40.1 Benign prostatic hyperplasia with lower urinary tract symptoms; L89.319 Pressure ulcer of right buttock, unspecified stage; I50.9 Heart failure, unspecified; R53.1 Weakness; Z16.29 Resistance to other single specified antibiotic; N39.0 Urinary tract infection, site not specified